=== PATIENT | female | born 1950 | race Caucasian/White ===

== ENCOUNTER 2019-02-08 06:14 | Inpatient (IN) | payer MEDICARE ==
[~2019-02-08] VITALS: Ht 165.1 cm; Wt 66.4 kg
[2019-02-08] VITALS (8 sets, daily range): BP systolic 107–129; BP diastolic 52–87
--- NOTE | 2019-02-08 06:25 | NUR ---
AMBULATED TO ROOM
--- NOTE | 2019-02-08 06:53 | NUR ---
REPORT RECIEVED FROM TATE ZARATE; MONITORING DEVICES APPLIED; PT C/O ABD PAIN RATING 9 OUT OF 10 IN GERALIZED ABD AREA; STATES SHES HAD A COUPLE LOOSE STOOLS IN THE PAST 24 HOURS; PAIN STARTED AFTER DINNER ON ; SPOUSE AT BEDSIDE; WILL MEDICATE WHEN AVAILABLE
[2019-02-08 07:03] LABS: URINE BLOOD DIPSTICK SMALL (NEGATIVE); URINE COLOR YELLOW; URINE GLUCOSE - DIPSTICK NEGATIVE (NEGATIVE); URINE PH 5.5 (4.5-8.0); URINE PROTEIN - DIPSTICK 30 mg/dL (NEG-TRACE); URINE SPECIFIC GRAVITY >=1.030; URINE UROBILINOGEN - DIPSTICK 0.2 E.U./dL (0.2)
--- NOTE | 2019-02-08 07:05 | NUR ---
PT MEDICATED PER MAR FOR ABD PAIN AND NAUSEA; MONITORING DEVICES IN PLACE; CALL LIGHT WITHIN REACH; SPOUSE AT BEDSIDE;WILL CONTINUE TO MONITOR
[2019-02-08] MEDS ORDERED: SERTRALINE PO (07:09)
[2019-02-08] MEDS ORDERED: SERTRALINE HCL25 MG PO (07:10)
[2019-02-08 07:11] LABS: URINE BILIRUBIN - DIPSTICK SMALL (NEGATIVE); URINE LEUK ESTERASE MODERATE (NEGATIVE); URINE NITRITE - DIPSTICK POSITIVE (Negative)
[2019-02-08] MEDS ORDERED: OMEPRAZOLE DR20 MG PO (07:11)
[2019-02-08] MEDS ORDERED: ATIVAN0.5 MG PO (07:11)
[2019-02-08] MEDS ORDERED: WELLBUTRIN100 M2 PO (07:11)
[2019-02-08 07:12] LABS: URINE KETONE Negative (NEGATIVE)
[2019-02-08] MEDS ORDERED: VIT E COMPLX400 UNIT PO (07:12)
[2019-02-08 07:13] LABS: URINE BACTERIA MANY hpf; URINE EPITHELIAL CELLS FEW EPI/hpf (0-FEW); URINE WBC 20-50 WBC/hpf (0-5)
[2019-02-08] MEDS ORDERED: TOPAMAX50 M1 PO (07:13)
[2019-02-08] MEDS ORDERED: IMITREX25 MG PO (07:14)
[2019-02-08 07:15] LABS: ALBUMIN 4.5 g/dL (3.2-5.0); ALKALINE PHOSPHATASE 80 u/l (38-126); AMYLASE 39 u/l (30-110); BUN 18 mg/dL (8-23); BUN/CREATININE RATIO 21 (12-20 (CALC)); CHLORIDE 105 mmol/l (95-108); CREATININE 0.9 mg/dL (0.5-1.0); GFR > 60 ML/MIN (>=60 (CALC)); GFR FOR AFR.AMER. > 60 ML/MIN (>=60 (CALC)); LIPASE 38 u/l (23-300); SGOT/AST 28 u/l (9-36); SODIUM 137 mmol/l (137-146); TOTAL PROTEIN 8.1 g/dL (6.3-8.2)
[2019-02-08 07:18] LABS: HEMATOCRIT 46.1 % (37.0-47.0); HEMOGLOBIN 14.8 g/dl (12.0-16.0); IMMATURE GRANULOCYTES 0.6 % (0.0-5.0); MEAN CELL VOLUME 99.1 fL CALC (80.0-100.0); MEAN CORPUSCULAR HGB 31.8 pG CALC (26.0-32.0); MEAN CORPUSCULAR HGB CONC 32.1 g/L CALC (32.0-36.0); NEUT# 12.56 thou/uL (2.00-7.15); RED BLOOD COUNT 4.65 mill/uL (4.20-5.60); RED CELL DISTRI WIDTH 13.6 % (11.5-15.5)
[2019-02-08 07:19] LABS: ANION GAP 19 (6-22 (CALC)); BILIRUBIN, TOTAL 0.8 mg/dL (0.0-1.4); CARBON DIOXIDE 17 mmol/l (22-30)
--- NOTE | 2019-02-08 07:58 | NUR ---
PT RETURNED FROM RADIOLOGY AT THIS TIME; MONITORING DEVICES REAPPLIED; IV ANTIBIOTICS INFUSING; PT C/O RESIDUAL ABD PAIN RATING 6 OUT OF 10 AND NAUSEA HAS RESLOVED; CALL LIGHT WITHIN REACH; WILL CONTINUE TO MONITOR
--- NOTE | 2019-02-08 08:50 | NUR ---
PT RESTING ON STRETCHER; NO S/S OF DISTRESS NOTED; PT STATES PAIN AND NAUSEA HAVE RESLOVED; DENIES ANY NEEDS AT THIS TIME; VSS; CALL LIGHT WITHIN REACH; WILL CONTINUE TO MONTIOR
--- NOTE | 2019-02-08 09:50 | NUR ---
PT RESTING ON STRETCHER; NO S/S OF DISTRESS NOTED; PT STATES SHE HAS PAIN WHEN SHE PALPATES HER STOMACH BUT NO N/V AT THIS TIME; MONITORING DEVICES IN PLACE;' VSS; CALL LIGHT WITHIN REACH; WILL CONTINUE TO MONITOR
--- NOTE | 2019-02-08 10:50 | NUR ---
PT RESTING ON STRETCHER; NO S/S OF DISTRESS NOTED; VSS; CALL LIGHT WITHIN REACH; WILL CONTINUE TO MONITOR
--- NOTE | 2019-02-08 11:50 | NUR ---
PT RESTING ON STRETCHER; C/O ABD RETUNRING; WILL MEDICATED WHEN AVAILABLE; VSS; WLL CONTINUE TO MONITOR
--- NOTE | 2019-02-08 12:50 | NUR ---
PT RESTING ON STRETCHER; NO S/S OF DISTRESS NOTED; VSS; IVF INFUSING; PT DENIES N/V AND TOLERATING PO FLUIDS WELL; CALL LIGHT WITHIN REACH; WILL CONTINUE TO MONITOR
--- NOTE | 2019-02-08 13:35 | NUR ---
[employer] NOTIFIED. [employer] CURRENTLY DOWN. UNABLE TO ENTER/OBTAIN ORDERS AT THIS TIME.
--- NOTE | 2019-02-08 13:40 | NUR ---
PT A&O X3. NO DISTRESS NOTED. PT VOICED HEADACHE BUT NO ABD PAIN AT THIS TIME. EXPLAINED TO PT THAT RN OR LPN WILL BE NOTIFIED. ASSESSMENT COMPLETED AT THIS TIME. SAFETY PERCAUTIONS REINFORCED. CALL LIGHT IN REACH. CONTINUE TO MONITOR.
--- NOTE | 2019-02-08 13:44 | NUR ---
REPORT REC FROM MINH STAFFORD
--- NOTE | 2019-02-08 13:50 | NUR ---
PT RESTING ON STRETCHER WITH EYES CLOSED; NO S/S OF DISTRESS NOTED; VSS; WILL CONTINUE TO MONITOR
--- NOTE | 2019-02-08 13:55 | NUR ---
PT ARRIVED TO THE ROOM VIA STRETCHER WITH RIVERA YBARRA.
--- NOTE | 2019-02-08 14:01 | NUR ---
Admission Note Report Given to: KAVITA ROBBINS Transported by: Wheelchair X Stretcher Transported with: X Nurse Transporter X Patent IV [employer]
--- NOTE | 2019-02-08 18:52 | NUR ---
NEW IV #20 IN THE RFA STARTED. PT TOLERATED WELL.
--- NOTE | 2019-02-08 18:55 | NUR ---
REPORT FROM FANNY WALLS. PT RESTING IN BED. ALERT AND ORIENTED. PT DENIES ANY CURRENT PAIN OR NAUSEA. NO APPARENT DISTRESS NOTED. IV ABT INFUSING WITHOUT S/S OF ADVERSE REACTION. DISCUSSED POC. PT VERBALIZED UNDERSTANDING. CALL LIGHT WITHIN REACH. WILL CONTINUE TO MONITOR.
--- NOTE | 2019-02-08 23:11 | NUR ---
PT RESTING IN BED WITH EYES CLOSED. WAKES EASILY. NO APPARENT DISTRESS NOTED. PT DENIES ANY PAIN OR DISCOMFORT. CALL LIGHT WITHIN REACH. WILL CONTINUE TO MONITOR.
[2019-02-09 04:20] VITALS: BP 107/52
[2019-02-09 05:20] LABS: IMMATURE GRANULOCYTES 0.7 % (0.0-5.0); MEAN CELL VOLUME 101.7 fL CALC (80.0-100.0); MEAN CORPUSCULAR HGB 32.1 pG CALC (26.0-32.0); MEAN CORPUSCULAR HGB CONC 31.6 g/L CALC (32.0-36.0); NEUT# 9.89 thou/uL (2.00-7.15); RED BLOOD COUNT 3.61 mill/uL (4.20-5.60); RED CELL DISTRI WIDTH 13.6 % (11.5-15.5)
[2019-02-09 05:28] LABS: HEMATOCRIT 36.7 % (37.0-47.0); HEMOGLOBIN 11.6 g/dl (12.0-16.0)
[2019-02-09 05:41] LABS: ANION GAP 12 (6-22 (CALC)); BUN 11 mg/dL (8-23); BUN/CREATININE RATIO 15 (12-20 (CALC)); CARBON DIOXIDE 18 mmol/l (22-30); CHLORIDE 111 mmol/l (95-108); CREATININE 0.7 mg/dL (0.5-1.0); GFR > 60 ML/MIN (>=60 (CALC)); GFR FOR AFR.AMER. > 60 ML/MIN (>=60 (CALC)); POTASSIUM 3.5 mmol/l (3.5-5.1); SODIUM 138 mmol/l (137-146)
[2019-02-09 07:20] VITALS: BP 111/52
--- NOTE | 2019-02-09 07:20 | NUR ---
PT RESTING IN BED. A&O X3. STATES NO PAIN AT THIS TIME BUT STATES THE FEELING OF IT STARTING AGAIN. NO SIGNS OF DISTRESS. DISCUSSED POC. ASSESSMENT COMPLETED AT THIS TIME. CALL LIGHT IN REACH. CONTINUE TO MONTIOR.
--- NOTE | 2019-02-09 12:32 | NUR ---
PT RESTING IN BED. NO NEEDS AT THIS TIME. CONTINUE TO MONITOR.
--- NOTE | 2019-02-09 14:50 | NUR ---
PTS VOICED CONCERNS ABOUT PT NOT REC MORNING MEDICATIONS. EXPLAINED TO THE PT THAT THE MEDICATION ORDERS HAD BARELY BEEN VERIFIED BY THE MD & OPTIMIZATION ENGINEER IN THE COMPUTER. PHARMACY NOTFIED AND ORDERS PLACED TO GIVE MEDS.
--- NOTE | 2019-02-09 15:26 | NUR ---
PT FEELING NAUSEOUS. ZOFRAN IV GIVEN. PT STATES THAT SHE WANTS TO HOLD OFF ON THE MEDICATIONS SHE WAS REQUESTING. STATED THAT I WOULD GO BACK IN A FEW MINUTES TO RE-EVALUATE HER TO GIVE HER MEDS.
--- NOTE | 2019-02-09 16:00 | NUR ---
PT STATES THAT SHE STILL WANTS TO HOLD OFF ON TAKING HER MEDICATIONS FOR A FEW MORE MINUTES.
[2019-02-09 16:22] VITALS: BP 131/57
--- NOTE | 2019-02-09 16:30 | NUR ---
ATTEMPTED AGAIN TO GIVE MEDICATIONS, PER PT "CAN WE HOLD OFF FOR A FEW MORE MINUTES".
[2019-02-09 19:03] VITALS: BP 110/59
--- NOTE | 2019-02-09 20:14 | NUR ---
ASSESSMENT COMPLETED. NO DISTRESS NOTED; DENIES NEEDS/PAIN. PT. REPORTS SHE WILL POSSIBLY NEED SOMETHING TO HELP HER SLEEP AND INSTRUCTED TO CALL IF AN WHEN SHE NEEDS PRN ATIVAN, VERBALIZES UNDERSTANDING. REPORTS X3 LIQUID GREEN STOOLS SINCE DINNER TIME. DENIES NAUSEA AT THIS TIME. ENCOURAGED TO CALL FOR ANY NEEDS. CALL LIGHT IS IN REACH.
--- NOTE | 2019-02-09 20:52 | NUR ---
PT. MEDICATED WITH ORDERED PRN ATIVAN FOR REPORTS TO HELP HER REST AND RELAX; DENIES FURTHER NEEDS. CALL LIGHT IS IN REACH. WILL CONTINUE TO MONITOR.
--- NOTE | 2019-02-09 23:23 | NUR ---
YSCHED MED GIVEN. DENIES NEEDS/PAIN. ENCOURAGED TO CALL FOR ANY NEEDS. CALL LIGHT IS IN REACH.
--- NOTE | 2019-02-10 01:52 | NUR ---
PT. C/O COLUNGA AND MEDICATED WITH ORDERED PRN IMITREX, WILL REASSESS. DENIES FURTHER NEEDS. PO FLUIDS OFFERED. NEW BAG OF ORDERED IVF HUNG. CALL LIGHT IS IN REACH.
[2019-02-10 04:01] VITALS: BP 123/67
--- NOTE | 2019-02-10 04:02 | NUR ---
VSS. NO DISTRESS NOTED; DENIES NEEDS/PAIN. REPORTS NO MORE BM'S THROUGHOUT SHIFT. ENCOURAGED TO CALL FOR ANY NEEDS. CALL LIGHT IS IN REACH.
[2019-02-10 05:05] LABS: HEMATOCRIT 35.9 % (37.0-47.0); HEMOGLOBIN 11.4 g/dl (12.0-16.0); IMMATURE GRANULOCYTES 0.3 % (0.0-5.0); MEAN CELL VOLUME 100.3 fL CALC (80.0-100.0); MEAN CORPUSCULAR HGB 31.8 pG CALC (26.0-32.0); MEAN CORPUSCULAR HGB CONC 31.8 g/L CALC (32.0-36.0); NEUT# 6.74 thou/uL (2.00-7.15); RED BLOOD COUNT 3.58 mill/uL (4.20-5.60); RED CELL DISTRI WIDTH 13.5 % (11.5-15.5)
[2019-02-10 05:23] LABS: ANION GAP 15 (6-22 (CALC)); BUN 6 mg/dL (8-23); BUN/CREATININE RATIO 9 (12-20 (CALC)); CARBON DIOXIDE 15 mmol/l (22-30); CHLORIDE 113 mmol/l (95-108); CREATININE 0.7 mg/dL (0.5-1.0); GFR > 60 ML/MIN (>=60 (CALC)); GFR FOR AFR.AMER. > 60 ML/MIN (>=60 (CALC)); POTASSIUM 3.1 mmol/l (3.5-5.1); SODIUM 140 mmol/l (137-146)
--- NOTE | 2019-02-10 05:37 | NUR ---
YONATHAN VILLALTA. PT. DENIES NEEDS/PAIN. ENCOURAGED TO CALL FOR ANY NEEDS. CALL LIGHT IS IN REACH.
[2019-02-10 07:45] VITALS: BP 125/52
--- NOTE | 2019-02-10 07:45 | NUR ---
AWAKE ON ROUNDS. RESP NON-LABORED. LUNGS CLEAR THROUGHOUT. ABD SOFT WITH BOWEL SOUNDS. UP TO BR TO VOID. AMBULATES WITH STEADY GAIT. TEDS HOSE ON. #20 IV SITE IN RFA WITH NS AT 100 ML/HR. DICUSSED PLAN OF CARE. DENIES NEEDS AT THIS TIME. CALL LEI IN REACH.
--- NOTE | 2019-02-10 11:30 | NUR ---
RESITNG IN BED TALKING WITH VISITORS. K RIDE STARTED FOR LOW POTASSIUM LEVEL EXPLAINED TO PATIENT.
--- NOTE | 2019-02-10 12:46 | NUR ---
PATIENT C/O SEVERE PAIN IN RT ARM AT IV SITE, INFUSION RATE REDUCED. PATIENT REQUESTS PAIN MED. MEDICATED WITH DILAUDID REQUESTED. DISCUSSED WITH Daisy LUIBN/GOLD NEW ORDERS RECEIVED.
--- NOTE | 2019-02-10 16:00 | NUR ---
PATIENT STATES EVERYTIME SHE EATS SHE HAS TO RUN TO BR FOR LOOSE STOOLS. IV SITE IN RAC WITH NS AT 100 ML/HR AND SALINE LOCK IN RFA, BOTH SITES BENIGN.
[2019-02-10 17:07] VITALS: BP 127/58
--- NOTE | 2019-02-10 19:15 | NUR ---
REPORT RECEIVED FROM TATE PLUMMER. PT RESTING IN BED SEMI FOWLERS; ALERT AND ORIENTED. C/O HEADAHCE AND MILD ABDOMINAL TENDERNESS, BUT DECLINES PAIN MEDICATION. RESPOIRATIONS EVEN AND UNLABORED ON ROOM AIR. REQUESTS HER PM MEDICATIONS EARLY POSSIBLE STATING THAT SHE IS TIRED AND READY TO GO TO BED. PLAN OF CARE REVIEWED. PT ENCOURAGED TO VERBALIZE CONCERNS. STATES UNDERSTANDING. SAFETY MEASURES IN PLACE. CALL LIGHT WITHIN REACH.
[2019-02-10 19:40] VITALS: BP 150/67
--- NOTE | 2019-02-10 21:00 | NUR ---
PM MEDICATIONS GIVEN INCLUDING ATIVAN.
--- NOTE | 2019-02-11 00:35 | NUR ---
PT ASLEEP AT THIS TIME WITH NO SIGNS OF DISTRESS; AWAKENS SPONTANEOUSLY; ZOSYN INFUSED WITHOUT DIFFICULTY; IV FLUIDS ALSO INFUSING; IV SITE APPEARS HEALTHY AND FLUSHES. NO REQUESTS OR CONCERNS AT THIS TIME. CALL LIGHT WITHIN REACH.
[2019-02-11 04:55] LABS: HEMATOCRIT 33.5 % (37.0-47.0); HEMOGLOBIN 10.7 g/dl (12.0-16.0); IMMATURE GRANULOCYTES 0.4 % (0.0-5.0); MEAN CELL VOLUME 98.2 fL CALC (80.0-100.0); MEAN CORPUSCULAR HGB 31.4 pG CALC (26.0-32.0); MEAN CORPUSCULAR HGB CONC 31.9 g/L CALC (32.0-36.0); NEUT# 5.13 thou/uL (2.00-7.15); RED BLOOD COUNT 3.41 mill/uL (4.20-5.60); RED CELL DISTRI WIDTH 13.4 % (11.5-15.5)
--- NOTE | 2019-02-11 05:06 | NUR ---
NO ACUTE CHANGES IN CONDITION THROUGHOUT THE NIGHT. INDEPENDENT BATHROOM. USES CALL LIGHT PRN FOR ASSISTANCE. DENIES ANY ABDOMINAL PAIN AT THIS TIME. SAFETY MEASURES IN PLACE. CALL LIGHT WITHIN REACH.
[2019-02-11 05:15] LABS: ANION GAP 13 (6-22 (CALC)); BUN 3 mg/dL (8-23); BUN/CREATININE RATIO 6 (12-20 (CALC)); CARBON DIOXIDE 16 mmol/l (22-30); CHLORIDE 114 mmol/l (95-108); CREATININE 0.6 mg/dL (0.5-1.0); GFR > 60 ML/MIN (>=60 (CALC)); GFR FOR AFR.AMER. > 60 ML/MIN (>=60 (CALC)); POTASSIUM 3.4 mmol/l (3.5-5.1); SODIUM 140 mmol/l (137-146)
[2019-02-11 07:25] VITALS: BP 134/68
--- NOTE | 2019-02-11 07:25 | NUR ---
AWAKE ON ROUNDS. SITTING UP IN BED. DENIES ABD PAIN OR DISCOMFORTS. ABD SOFT WITH BOWEL SOUNDS. IV IN RAC WITH NS AT 100 ML/HR AND SALINE LOCK IN RFA, BOTH SITES BENIGN.
--- NOTE | 2019-02-11 10:00 | NUR ---
DR PAULINO IN TO SEE PATIENT TO BE DC'D TODAY.
[2019-02-11] MEDS ORDERED: CIPROFLOXACN500 MG PO (10:02)
[2019-02-11] MEDS ORDERED: METRONIDAZOL500 MG PO (10:03)
[2019-02-11] MEDS ORDERED: LORTAB5 PO (10:04)
--- NOTE | 2019-02-11 13:00 | NUR ---
TOLERATED SOFT DIET FOR LUNCH WELL. NO COMPLAINTS VOICED.
--- NOTE | 2019-02-11 15:16 | NUR ---
Discharge instructions given. Patient verbalizes understanding of same. Discharged in stable condition via Wheelchair to Home with spouse. All belongings sent with pt.
== END 2019-02-11 15:16 | disposition home or self-care (01) | DRG 392 ==
LOC: ED 06:14 → ED-I 09:06 → ED 09:16 → ED-I 09:17 → MS2 09:17
PROVIDERS: Emergency Medicine; Nurse Practitioner Family; ADMIT Internal Medicine; ATTEND Internal Medicine
DX: K57.12 Diverticulitis of small intestine without perforation or abscess without bleeding (principal); N39.0 Urinary tract infection, site not specified; K57.30 Diverticulosis of large intestine without perforation or abscess without bleeding; F32.9 Major depressive disorder, single episode, unspecified; F41.9 Anxiety disorder, unspecified; E03.9 Hypothyroidism, unspecified; K21.9 Gastro-esophageal reflux disease without esophagitis; E87.6 Hypokalemia; B96.20 Unspecified Escherichia coli [E. coli] as the cause of diseases classified elsewhere; K52.9 Noninfective gastroenteritis and colitis, unspecified
CPT/HCPCS: G0378

== ENCOUNTER 2019-02-17 07:22 | Emergency (ER) | payer MEDICARE ==
[~2019-02-17] VITALS: Ht 165.1 cm; Wt 66.4 kg
[~2019-02-17 07:22] MED LIST: ATIVAN0.5 MG PO; CIPROFLOXACN500 MG PO; IMITREX25 MG PO; LORTAB5 PO; METRONIDAZOL500 MG PO; OMEPRAZOLE DR20 MG PO; SERTRALINE HCL25 MG PO; SERTRALINE PO; TOPAMAX50 M1 PO; VIT E COMPLX400 UNIT PO; WELLBUTRIN100 M2 PO
[2019-02-17 08:12] LABS: HEMATOCRIT 41.8 % (37.0-47.0); HEMOGLOBIN 13.7 g/dl (12.0-16.0); IMMATURE GRANULOCYTES 0.5 % (0.0-5.0); MEAN CELL VOLUME 95.9 fL CALC (80.0-100.0); MEAN CORPUSCULAR HGB 31.4 pG CALC (26.0-32.0); MEAN CORPUSCULAR HGB CONC 32.8 g/L CALC (32.0-36.0); NEUT# 6.46 thou/uL (2.00-7.15); RED BLOOD COUNT 4.36 mill/uL (4.20-5.60); RED CELL DISTRI WIDTH 13.5 % (11.5-15.5); URINE BILIRUBIN - DIPSTICK NEGATIVE (NEGATIVE); URINE BLOOD DIPSTICK NEGATIVE (NEGATIVE); URINE COLOR YELLOW; URINE GLUCOSE - DIPSTICK NEGATIVE (NEGATIVE); URINE KETONE NEGATIVE (NEGATIVE); URINE LEUK ESTERASE NEGATIVE (NEGATIVE); URINE NITRITE - DIPSTICK NEGATIVE (Negative); URINE PH 6.5 (4.5-8.0); URINE PROTEIN - DIPSTICK NEGATIVE (NEG-TRACE); URINE SPECIFIC GRAVITY 1.015; URINE UROBILINOGEN - DIPSTICK 0.2 E.U./dL (0.2)
[2019-02-17 08:31] LABS: ALKALINE PHOSPHATASE 78 u/l (38-126); ANION GAP 13 (6-22 (CALC)); BILIRUBIN, TOTAL 0.4 mg/dL (0.0-1.4); BUN 5 mg/dL (8-23); BUN/CREATININE RATIO 10 (12-20 (CALC)); CARBON DIOXIDE 27 mmol/l (22-30); CHLORIDE 105 mmol/l (95-108); CREATININE 0.5 mg/dL (0.5-1.0); GFR > 60 ML/MIN (>=60 (CALC)); GFR FOR AFR.AMER. > 60 ML/MIN (>=60 (CALC)); LIPASE 156 u/l (23-300); POTASSIUM 2.6 mmol/l (3.5-5.1); SGOT/AST 49 u/l (9-36); SODIUM 142 mmol/l (137-146); TOTAL PROTEIN 7.8 g/dL (6.3-8.2)
[2019-02-17] MEDS ORDERED: PHENERGAN25 MG/TAB PO (09:15)
[2019-02-17 09:32] VITALS: BP 136/78
== END 2019-02-17 09:36 | disposition home or self-care (01) ==
LOC: ED 07:22
DX: R11.0 Nausea (principal); E87.6 Hypokalemia; R74.8 Abnormal levels of other serum enzymes; E03.9 Hypothyroidism, unspecified

== ENCOUNTER 2020-08-03 06:11 | Emergency (ER) | payer MEDICARE ==
[~2020-08-03] VITALS: Ht 165.1 cm; Wt 61.0 kg
[~2020-08-03 06:11] MED LIST changes: +PHENERGAN25 MG/TAB PO
[2020-08-03 06:39] LABS: HEMATOCRIT 40.4 % (37.0-47.0); HEMOGLOBIN 12.8 g/dl (12.0-16.0); IMMATURE GRANULOCYTES 3.7 % (0.0-5.0); MEAN CELL VOLUME 103.6 fL CALC (80.0-100.0); MEAN CORPUSCULAR HGB 32.8 pG CALC (26.0-32.0); MEAN CORPUSCULAR HGB CONC 31.7 g/dL CAL (32.0-36.0); NEUT# 5.46 thou/uL (2.00-7.15); RED BLOOD COUNT 3.9 mill/uL (4.20-5.60); RED CELL DISTRI WIDTH 13.7 % (11.5-15.5)
[2020-08-03 06:58] LABS: ALKALINE PHOSPHATASE 60 u/l (38-126); ANION GAP 10 (6-22 (CALC)); BUN 16 mg/dL (8-23); BUN/CREATININE RATIO 21 (12-20 (CALC)); CARBON DIOXIDE 26 mmol/l (22-30); CHLORIDE 107 mmol/l (95-108); CREATININE 0.8 mg/dL (0.5-1.0); GFR > 60 ML/MIN (>=60 (CALC)); GFR FOR AFR.AMER. > 60 ML/MIN (>=60 (CALC)); LIPASE 102 u/l (23-300); POTASSIUM 3.7 mmol/l (3.5-5.1); SGOT/AST 51 u/l (9-36); SODIUM 139 mmol/l (137-146); TOTAL PROTEIN 7.4 g/dL (6.3-8.2)
[2020-08-03 07:02] LABS: BILIRUBIN, TOTAL 0.2 mg/dL (0.0-1.4)
[2020-08-03 07:06] LABS: ACT PARTIAL THROMBO TIME 20.5 SECONDS (20.0-32.5); PROTHROMBIN TIME 9.7 SECONDS (9.0-12.5)
[2020-08-03 07:07] LABS: URINE BLOOD DIPSTICK NEGATIVE (NEGATIVE); URINE COLOR YELLOW; URINE GLUCOSE - DIPSTICK NEGATIVE (NEGATIVE); URINE KETONE TRACE mg/dL (NEGATIVE); URINE PROTEIN - DIPSTICK NEGATIVE (NEG-TRACE); URINE SPECIFIC GRAVITY 1.025; URINE UROBILINOGEN - DIPSTICK 0.2 E.U./dL (0.2)
[2020-08-03 07:15] LABS: URINE BILIRUBIN - DIPSTICK NEGATIVE (NEGATIVE); URINE LEUK ESTERASE SMALL (NEGATIVE); URINE NITRITE - DIPSTICK NEGATIVE (Negative)
[2020-08-03 07:18] LABS: URINE BACTERIA MANY hpf; URINE SQUAMOUS EPITHELIAL CELL FEW EPI/hpf (0-FEW)
[2020-08-03] MEDS ORDERED: HYDROCO/APAP1 TA9 PO (09:25)
[2020-08-03] MEDS ORDERED: ZOFRAN4 M1 PO (09:25)
[2020-08-03 09:47] VITALS: BP 135/72
== END 2020-08-03 09:48 | disposition home or self-care (01) ==
LOC: ED 06:11
DX: S22.42XA Multiple fractures of ribs, left side, initial encounter for closed fracture (principal); S32.029A Unspecified fracture of second lumbar vertebra, initial encounter for closed fracture; S32.019A Unspecified fracture of first lumbar vertebra, initial encounter for closed fracture; R78.81 Bacteremia; E03.9 Hypothyroidism, unspecified; F32.9 Major depressive disorder, single episode, unspecified; F41.9 Anxiety disorder, unspecified; W01.198A Fall on same level from slipping, tripping and stumbling with subsequent striking against other object, initial encounter; Y92.520 Airport as the place of occurrence of the external cause
CPT/HCPCS: Q9967

== ENCOUNTER 2020-12-16 11:09 | Emergency (ER) | payer MEDICARE ==
[~2020-12-16] VITALS: Ht 165.1 cm; Wt 70.0 kg
[~2020-12-16 11:09] MED LIST changes: +HYDROCO/APAP1 TA9 PO; +ZOFRAN4 M1 PO
[2020-12-16] MEDS ORDERED: TRAMADOL HYDROC50 M1 PO (13:08)
[2020-12-16 13:12] VITALS: BP 180/81
== END 2020-12-16 13:17 | disposition home or self-care (01) ==
LOC: ED 11:09
DX: S20.211A Contusion of right front wall of thorax, initial encounter (principal); S40.021A Contusion of right upper arm, initial encounter; E03.9 Hypothyroidism, unspecified; F41.9 Anxiety disorder, unspecified; F32.9 Major depressive disorder, single episode, unspecified; H35.30 Unspecified macular degeneration; W01.0XXA Fall on same level from slipping, tripping and stumbling without subsequent striking against object, initial encounter; Y92.003 Bedroom of unspecified non-institutional (private) residence as the place of occurrence of the external cause

== ENCOUNTER 2021-02-02 09:05 | Emergency (ER) | payer MEDICARE ==
[~2021-02-02] VITALS: Ht 165.1 cm; Wt 64.0 kg
[~2021-02-02 09:05] MED LIST changes: +TRAMADOL HYDROC50 M1 PO
[2021-02-02 09:37] LABS: HEMATOCRIT 40.8 % (37.0-47.0); HEMOGLOBIN 13.1 g/dl (12.0-16.0); IMMATURE GRANULOCYTES 0.2 % (0.0-5.0); MEAN CELL VOLUME 99.3 fL CALC (80.0-100.0); MEAN CORPUSCULAR HGB 31.9 pG CALC (26.0-32.0); MEAN CORPUSCULAR HGB CONC 32.1 g/dL CAL (32.0-36.0); NEUT# 3.29 thou/uL (2.00-7.15); RED BLOOD COUNT 4.11 mill/uL (4.20-5.60); RED CELL DISTRI WIDTH 12.3 % (11.5-15.5)
[2021-02-02 09:48] LABS: ALBUMIN 4.1 g/dL (3.2-5.0); ALKALINE PHOSPHATASE 98 u/l (38-126); ANION GAP 14 (6-22 (CALC)); BILIRUBIN, TOTAL 0.4 mg/dL (0.0-1.4); BUN 16 mg/dL (8-23); BUN/CREATININE RATIO 25 (12-20 (CALC)); CARBON DIOXIDE 23 mmol/l (22-30); CHLORIDE 108 mmol/l (95-108); CREATININE 0.6 mg/dL (0.5-1.0); GFR > 60 ML/MIN (>=60 (CALC)); GFR FOR AFR.AMER. > 60 ML/MIN (>=60 (CALC)); POTASSIUM 3.1 mmol/l (3.5-5.1); SGOT/AST 29 u/l (9-36); SODIUM 142 mmol/l (137-146); TOTAL PROTEIN 7.2 g/dL (6.3-8.2)
[2021-02-02 11:40] VITALS: BP 171/90
== END 2021-02-02 11:47 | disposition home or self-care (01) ==
LOC: ED 09:05
PROVIDERS: Family Medicine
DX: K92.1 Melena (principal); E03.9 Hypothyroidism, unspecified; F41.9 Anxiety disorder, unspecified; F32.A Depression, unspecified
CPT/HCPCS: Q9967

== ENCOUNTER 2021-02-15 08:17 | Day surgery (SDC) | payer MEDICARE ==
[~2021-02-15 08:17] MED LIST changes: +ALENDRONATE SOD70 MG PO; +LEVOTHYROXIN50 MCG PO; -SERTRALINE HCL25 MG PO; +ZOLOFT50 MG PO
[2021-02-15] MEDS ORDERED: CYANOCOBAL1000 MCG/M IM (08:43)
[2021-02-15 10:54] VITALS: BP 162/72
== END 2021-02-15 10:58 | disposition home or self-care (01) ==
LOC: ENDO 08:17 → ORM 11:00 → ENDO 11:00
PROVIDERS: ATTEND Surgery
PROC: 0DJD8ZZ Inspection of Lower Intestinal Tract, Via Natural or Artificial Opening Endoscopic (ICD-10-PCS; principal; 2021-02-15)
DX: K57.31 Diverticulosis of large intestine without perforation or abscess with bleeding (principal); K64.8 Other hemorrhoids; K64.4 Residual hemorrhoidal skin tags; Z86.010 Personal history of colon polyps

== ENCOUNTER 2024-05-15 21:25 | Observation (INO) | payer MEDICARE ==
[~2024-05-15] VITALS: Ht 165.1 cm; Wt 67.7 kg
[~2024-05-15 21:25] MED LIST changes: +CYANOCOBAL1000 MCG/M IM
[2024-05-15] MEDS ORDERED: SODIUM CHLORIDE 0.9% 1,000 ML IV STA (23:35)
[2024-05-15 23:53] VITALS: BP 134/71
[2024-05-16] VITALS (22 sets, daily range): BP systolic 101–173; BP diastolic 50–131
[2024-05-16 00:03] LABS: BASO% 0.5 % (0-3); EOS% 1.9 % (0-8); HEMATOCRIT 38.5 % (37.0-47.0); HEMOGLOBIN 12.5 g/dl (12.0-16.0); IMMATURE GRANULOCYTES 0.2 % (0.0-5.0); LYMPH% 13.3 % (15-41); MEAN CELL VOLUME 105.5 fL CALC (80.0-100.0); MEAN CORPUSCULAR HGB 34.2 pG CALC (26.0-32.0); MEAN CORPUSCULAR HGB CONC 32.5 g/dL CAL (32.0-36.0); MONO% 9.8 % (2-13); NEUT# 7.45 thou/uL (2.00-7.15); NEUT% 74.3 % (42-76); RED BLOOD COUNT 3.65 mill/uL (4.20-5.60); RED CELL DISTRI WIDTH 13.1 % (11.5-15.5)
[2024-05-16 00:07] LABS: URINE BILIRUBIN - DIPSTICK Negative (NEGATIVE); URINE BLOOD DIPSTICK Trace-intact (NEGATIVE); URINE COLOR Yellow; URINE GLUCOSE - DIPSTICK Negative (NEGATIVE); URINE KETONE Negative (NEGATIVE); URINE LEUK ESTERASE Small (NEGATIVE); URINE NITRITE - DIPSTICK Negative (Negative); URINE PH 5.5 (4.5-8.0); URINE PROTEIN - DIPSTICK Negative (NEG-TRACE); URINE UROBILINOGEN - DIPSTICK 0.2 E.U./dL (0.2)
[2024-05-16 00:12] LABS: ALBUMIN 4.2 g/dL (3.2-5.0); CREATININE 1.4 mg/dL (0.5-1.0); TOTAL PROTEIN 7.3 g/dL (6.3-8.2)
[2024-05-16 00:15] LABS: URINE SQUAMOUS EPITHELIAL CELL FEW EPI/hpf (0-FEW)
[2024-05-16 00:19] LABS: URINE CRYSTALS FEW lpf
[2024-05-16 00:21] LABS: BILIRUBIN, TOTAL 0.6 mg/dL (0.02-1.3)
[2024-05-16] MEDS ORDERED: MORPHINE SULFATE 4 MG/ML VIAL IV ONE ×2 (00:55→02:15)
[2024-05-16] MEDS ORDERED: GENTAMICIN SULFATE IV SCH ×2 (02:11→04:00)
[2024-05-16] MEDS ORDERED: DEXTROSE 5% w/NACL 0.45 1,000 ML IV ONE (02:15)
[2024-05-16] MEDS ORDERED: ONDANSETRON HCl 4 MG/2 ML SDV IV ONE (02:15)
[2024-05-16] MEDS ORDERED: MAGNESIUM HYDROXIDE 30 ML UDC PO PRN (02:20)
[2024-05-16] MEDS ORDERED: SODIUM CHLORIDE 0.9% 1,000 ML IV PRN (02:20)
[2024-05-16] MEDS ORDERED: ACETAMINOPHEN 325 MG/TAB PO PRN (02:20)
[2024-05-16] MEDS ORDERED: DEXTROSE 5% IV SCH (04:00)
[2024-05-16] MEDS ORDERED: MORPHINE SULFATE 4 MG/ML VIAL IV PRN (06:10)
[2024-05-16] MEDS ORDERED: LACTATED RINGER'S 1,000 ML IV ONE (07:41)
[2024-05-16] MEDS ORDERED: SODIUM CHLORIDE 1,000 ML BTL IR ONE (07:49)
[2024-05-16] MEDS ORDERED: STERILE WATER 0 ML IV ONE (07:49)
[2024-05-16] MEDS ORDERED: FAMOTIDINE 10MG/ML 2ML SDV IV ONE (07:52)
[2024-05-16] MEDS ORDERED: ISOVUE-300 (Iopamidol) 100 ML SDV IV ONE (07:56)
[2024-05-16] MEDS ORDERED: HYDROXYZINE HYD25 MG PO (09:54)
[2024-05-16] MEDS ORDERED: HYDROXYCHLOR200 MG PO (09:54)
[2024-05-16] MEDS ORDERED: PREDNISONE1 MG PO (09:55)
[2024-05-16] MEDS ORDERED: DESONIDE0.05 % EX (09:55)
[2024-05-16] MEDS ORDERED: DULOXETINE HCL20 MG PO (09:56)
[2024-05-16] MEDS ORDERED: CLOBETASOL E0.05 % EX (09:57)
[2024-05-16] MEDS ORDERED: HYDROcodone 5 MG/Acetaminophen 325 MG/COMBO PO PRN (12:20)
[2024-05-16] MEDS ORDERED: HYDROXYCHLOROQUINE SULFATE 200 MG/TAB PO SCH (12:30)
[2024-05-16] MEDS ORDERED: PROPOFOL 200 MG/20 ML VIAL IV ONE (16:36)
[2024-05-16] MEDS ORDERED: LIDOCAINE HCL 2% (20 MG/ML) 5ML SDV IV ONE (16:36)
[2024-05-16] MEDS ORDERED: TOPAMAX100 MG PO (19:00)
[2024-05-16] MEDS ORDERED: OMEPRAZOLE DR40 MG PO (19:01)
[2024-05-16] MEDS ORDERED: LEVOTHYROXIN25 MC1 PO (19:02)
[2024-05-16] MEDS ORDERED: WELLBUTRIN XL300 MG (19:04)
[2024-05-16] MEDS ORDERED: ENOXAPARIN SODIUM 40 MG/0.4 ML SYR SC SCH (21:00)
[2024-05-16] MEDS ORDERED: hydrOXYzine HCL 25 MG/TAB PO SCH (21:00)
[2024-05-17 04:11] VITALS: BP 131/69
[2024-05-17 05:15] LABS: BASO% 0.8 % (0-3); IMMATURE GRANULOCYTES 0.2 % (0.0-5.0); MEAN CELL VOLUME 108.2 fL CALC (80.0-100.0); MEAN CORPUSCULAR HGB 35.1 pG CALC (26.0-32.0); MEAN CORPUSCULAR HGB CONC 32.5 g/dL CAL (32.0-36.0); MONO% 8.6 % (2-13); NEUT# 3.6 thou/uL (2.00-7.15); NEUT% 55.4 % (42-76); RED BLOOD COUNT 2.79 mill/uL (4.20-5.60); RED CELL DISTRI WIDTH 13.4 % (11.5-15.5)
[2024-05-17 05:19] LABS: HEMATOCRIT 30.2 % (37.0-47.0); HEMOGLOBIN 9.8 g/dl (12.0-16.0)
[2024-05-17 05:31] LABS: MAGNESIUM 1.8 mg/dL (1.6-2.3); POTASSIUM 3.4 mmol/l (3.5-5.1)
[2024-05-17 05:33] LABS: ALBUMIN 2.7 g/dL (3.2-5.0); BILIRUBIN, TOTAL 0.2 mg/dL (0.02-1.3); TOTAL PROTEIN 5.3 g/dL (6.3-8.2)
[2024-05-17 06:51] VITALS: BP 138/69
[2024-05-17] MEDS ORDERED: PATIENT' OWN MED 1 EA DOSE PO SCH (09:00)
[2024-05-17] MEDS ORDERED: POTASSIUM CHLORIDE 20MEQ 100 ML IV SCH (09:30)
[2024-05-17 10:24] VITALS: BP 134/56
[2024-05-17 15:53] VITALS: BP 154/74
[2024-05-17 16:35] VITALS: BP 154/74
[2024-05-17 19:13] VITALS: BP 146/70
[2024-05-18 04:39] VITALS: BP 134/78
[2024-05-18 05:14] LABS: BASO% 0.7 % (0-3); EOS% 4.1 % (0-8); HEMATOCRIT 30.3 % (37.0-47.0); HEMOGLOBIN 9.9 g/dl (12.0-16.0); LYMPH% 28.2 % (15-41); MEAN CELL VOLUME 107.4 fL CALC (80.0-100.0); MEAN CORPUSCULAR HGB 35.1 pG CALC (26.0-32.0); MEAN CORPUSCULAR HGB CONC 32.7 g/dL CAL (32.0-36.0); MONO% 9.6 % (2-13); NEUT# 3.49 thou/uL (2.00-7.15); NEUT% 57.4 % (42-76); RED BLOOD COUNT 2.82 mill/uL (4.20-5.60); RED CELL DISTRI WIDTH 13.3 % (11.5-15.5)
[2024-05-18 05:28] LABS: ALBUMIN 2.7 g/dL (3.2-5.0); BILIRUBIN, TOTAL 0.2 mg/dL (0.02-1.3); CREATININE 0.7 mg/dL (0.5-1.0); MAGNESIUM 1.9 mg/dL (1.6-2.3); POTASSIUM 3.4 mmol/l (3.5-5.1); TOTAL PROTEIN 5.3 g/dL (6.3-8.2)
[2024-05-18 06:19] VITALS: BP 141/72
[2024-05-18 07:00] VITALS: BP 141/72
[2024-05-18] MEDS ORDERED: CEFUROXIME250 MG PO (08:47)
[2024-05-18] MEDS ORDERED: POTASSIUM CHLORIDE 20MEQ 100 ML IV SCH (09:30)
[2024-05-18] MEDS ORDERED: PATIENT' OWN MED 1 EA DOSE PO SCH (10:00)
== END 2024-05-18 12:11 | disposition home or self-care (01) ==
LOC: ED 21:25 → ED-I 05-16 02:08 → ED 05-16 02:20 → MS2 05-16 02:21
PROVIDERS: Emergency Medicine; Internal Medicine; Nurse Practitioner Family; ADMIT Internal Medicine; ATTEND Internal Medicine
PROC: 0T778DZ Dilation of Left Ureter with Intraluminal Device, Via Natural or Artificial Opening Endoscopic (ICD-10-PCS; principal; 2024-05-16)
DX: N13.6 Pyonephrosis (principal); N17.9 Acute kidney failure, unspecified; E87.6 Hypokalemia; D64.9 Anemia, unspecified; I10 Essential (primary) hypertension; E03.9 Hypothyroidism, unspecified; M32.9 Systemic lupus erythematosus, unspecified; K21.9 Gastro-esophageal reflux disease without esophagitis; F41.9 Anxiety disorder, unspecified; F32.A Depression, unspecified; Z88.8 Allergy status to other drugs, medicaments and biological substances
CPT/HCPCS: J0696; J1580; J1650; J2405; J3480; Q9966